=== PATIENT | female | born 1980 | race Hispanic/Latino ===

== ENCOUNTER 2018-04-20 15:38 | Outpatient (CLI) | payer BC | END 2018-04-20 15:39 | disposition home or self-care (01) | LOC: BICMAMMO 15:38 | PROVIDERS: ATTEND Family Medicine | DX: Z12.31 Encounter for screening mammogram for malignant neoplasm of breast (principal) | CPT/HCPCS: 77063; 77067 ==

== ENCOUNTER 2018-08-13 06:41 | Emergency (ER) | payer BC ==
[2018-08-13 07:10] LABS: #Basophils 0.1 thou/uL (0.0-0.2); #Eosinphils 0.2 thou/uL (0.0-0.7); #Lymphocytes 3.7 thou/uL (1.20-3.40); #Monocytes 0.5 thou/uL (0.11-0.59); #Neutrophils 6.6 thou/uL (1.40-6.50); %Eosinophils 1.8 % (0.0-10.0); %Lymphocytes 33.1 % (21.0-51.0); %Monocytes 4.6 % (0.0-10.0); %Neutrophils 59.5 % (42.0-75.0); Hemoglobin 13.6 g/dL (12.0-16.0); Mean Corpuscular HGB CONC 33.4 g/dL (32.0-36.0); Mean Corpuscular Hemoglobin 32.1 pg (27.0-31.0); Mean Corpuscular Volume 96.3 fL (78.0-98.0); Mean Platelet Volume 7.8 fL (7.4-10.4); Platelet Count 273 thou/uL (130-400); RBC Distribution Width 12.4 % (11.5-14.5); Red Blood Cell (RBC) Count 4.22 mill/uL (4.20-5.40); White Blood Cell (WBC) Count 11.1 thou/uL (4.8-10.8)
[2018-08-13 07:18] LABS: BHCG - Serum Negative (NEGATIVE); Pregs Control Background? CLEAR/WHITE (CLR/WHITE); Pregs Control Bar Appear? YES (CONTROL BAR)
[2018-08-13 07:24] LABS: ALT (SGPT) 107 U/L (8-55); AST (SGOT) 59 U/L (5-34); Albumin 4.3 g/dL (3.5-5.0); Alkaline Phosphatase 102 U/L (40-150); Anion Gap 16 mmol/L (10-20); BUN (Urea Nitrogen) 13 mg/dL (7.0-18.7); Bilirubin, Total 0.5 mg/dL (0.2-1.2); Calc. Creatinine Clearance 0 mL/min (70-130); Calcium 9.6 mg/dL (7.8-10.44); Carbon Dioxide 19 mmol/L (22-29); Chloride 106 mmol/L (98-107); Estimated GFR-MDRD Greater than 90; Glucose 124 mg/dL (70-105); Potassium 4.5 mmol/L (3.5-5.1); Protein, Total 7.3 g/dL (6.0-8.3); Sodium 136 mmol/L (136-145)
[2018-08-13] MEDS ORDERED: Ondansetron PF 4 MG/2 ML Vial ONE (07:42)
[2018-08-13] MEDS ORDERED: Morphine 4 MG/ML VIAL ONE ×2 (07:42→11:18)
[2018-08-13] MEDS ORDERED: cefOXitin 2 GM VIAL ONE (10:07)
[2018-08-13] MEDS ORDERED: Doxycycline 100 MG CAP PO SCH (10:15)
--- NOTE | 2018-08-13 10:33 | CT ---
CT ABDOMEN AND PELVIS WITH CONTRAST: Technique: Multiple contiguous axial images were obtained through the abdomen and pelvis with IV enha ncement. Indications: Abdominal pain. History: Prior miscarriages and prior ectopic . Patient denies vaginal bleeding according to the technologist. FINDINGS: Lung bases clear. Liver, spleen, and pancreas unremarkable. Adrenal glands and kidneys unremarkable. Urinary bladder un remarkable. Small bowel loops appear normal. Appendix appears unremarkable. Images through the lower abdomen and pelvis reveal a mass in the upper left pelvis. Overall dimension s recorded at approximately 5 cm AP and width. There is a central circumscribed cystic area measuring 2.6 cm. Surrounding inflammatory stranding. This appears adjacent to the left ovary. Endometrium is prominent. Small amount of free fluid in the cul-de-sac. IMPRESSION: 1. A mass in the upper left pelvis with a central cystic area. This does not have the appearance of a simple cyst. 2. There is surrounding inflammatory change. A small amount of free fluid. 3. Ectopic should be excluded. Tubo ovarian abscess is also a consideration. 4. Findings relayed to the Emergency Department at time of dictation. Code CR POS: [facility]
--- NOTE | 2018-08-13 14:47 | ULT ---
PELVIC ULTRASOUND: History: Pelvic pain. Technique: Multiple longitudinal and transverse images of the pelvis were obtained using a multi-hert z transabdominal as well as multihertz endovaginal transducers. FINDINGS: Real-time, color flow, and spectral waveform doppler analysis demonstrates the uterus to measure 9.3 x 4.8 x 6.6 cm. The endometrium has double wall thickness of 13 mm. Both ovaries are visualized. Righ t ovary measures 2.9 x 1.6 x 2.3 cm and left ovary 5.0 x 4.4 x 4.3 cm. Good blood flow is seen in bot h ovaries. There is a cyst in the left ovary measuring 2.2 x 2.9 x 2.5 cm. IMPRESSION: Left ovarian cyst and small amount of free pelvic fluid. No evidence of a significant pelvic abnormal ity seen. POS: [facility]
[2018-08-13] MEDS ORDERED: ISOVUE-370 76%-LOCM 1 ML ONE (16:51)
--- NOTE | 2018-08-14 10:54 | CON ---
DATE OF CONSULTATION: 08/13/2018 REFERRING PHYSICIAN: Dr. Jarett Bojorquez. CHIEF COMPLAINT: Abdominal pain and adnexal mass. HISTORY OF PRESENT ILLNESS: The patient is a 38-year-old female, who presented to the emergency room with 1-week history of abdominal pain of more severe abdominal pain and a several month history of intermittent pain. The patient woke up with severe pain in the time of presentation, unable to function and came to the emergency room for evaluation. Her initial thoughts were that she was miscarrying. However, on evaluation by the emergency room physician, the patient had a negative test and on CT scan, it was noted to have a left adnexal mass concerning for TOA by radiology findings. [employer] was consulted for evaluation. Upon arrival, the patient reports that she had been feeling much better compared to the pain she felt when she woke up. She did share with me that this pain has been going on for about a week now and it is more severe form and it has been going on for several months intermittently. The patient reports she has had painful intercourse in the left lower quadrant. The patient denies any change in discharge. She denies fever. She denies feeling ill. She denies nausea, vomiting, or diarrhea. The patient does report a couple of years ago, she had an ectopic resulting in removal of her right tube. PAST MEDICAL HISTORY: Diabetes and hyperlipidemia. The patient reports she has been told that she has inflammation of her liver. PAST SURGICAL HISTORY: Surgery for ectopic . SOCIAL HISTORY: Denies drug, alcohol, or tobacco use. ALLERGIES: NO KNOWN DRUG ALLERGIES. MEDICATIONS: 1. Lisinopril 5 mg daily. 2. Metformin 500 mg daily. PHYSICAL EXAMINATION: VITAL SIGNS: Blood pressure 111/56, pulse is 60, respiratory rate of 20, temperature 98.1, and saturating 96% on room air with reported pain scale of 5. GENERAL: She appears to be in no acute distress. She is alert, oriented, cooperative, and pleasant to interact with. HEENT: Head is normocephalic and atraumatic. LUNGS: Clear to auscultation bilaterally. HEART: Has regular rate and rhythm. ABDOMEN: Soft. She does have tenderness to palpation in the left lower quadrant. No peritoneal signs. EXTREMITIES: Nontender and nonedematous. DIAGNOSTIC DATA: Ultrasound was ordered. Findings were significant only for a 2 cm cyst on her left ovary, which otherwise appeared normal. In review of the images myself, the contents of the cyst appeared to be more heterogeneous than simple cystic fluid such as blood or a thicker mucinous fluid. Also noted on ultrasound is a small amount of pelvic fluid. ASSESSMENT AND PLAN: The patient is a 38-year-old female with chronic pelvic pain with an acute exacerbation. There is no evidence of infection at this time. She has suggested by Radiology findings, there is no inflammatory process surrounding this adnexa. Given the chronic nature of her symptoms and the spontaneous improvement over the course of her evaluation, though not resolved. The patient can continue this evaluation as an outpatient with [facility]. We did call make an appointment for her for Monday at 1030 hours in the morning, which she has agreed to keep. CA-125 was ordered at the time of initial ER evaluation, which findings are pending, but have a very low suspicion of any abnormality of CA-125 is back now with a level of 16.4, which is within normal limits. The patient will continue her evaluation as an outpatient with [facility] with Dr. Harris. Job ID: [id number]
== END 2018-08-13 13:41 | disposition home or self-care (01) ==
LOC: ERS 06:41
DX: N83.202 Unspecified ovarian cyst, left side (principal); E11.9 Type 2 diabetes mellitus without complications; E78.5 Hyperlipidemia, unspecified; Z79.84 Long term (current) use of oral hypoglycemic drugs; Z79.899 Other long term (current) drug therapy
CPT/HCPCS: 36415; 74177; 76856; 80053; 84702; 84703; 85025; 86304; 96365; 96366; 96375; 96376; J0694; J2270; J2405

== ENCOUNTER 2021-09-14 07:43 | Outpatient (CLI) | payer OTHER | END 2021-09-14 07:44 | disposition home or self-care (01) | LOC: BICULT 07:43 | PROVIDERS: ATTEND Nurse Practitioner Family | DX: R10.9 Unspecified abdominal pain (principal) | CPT/HCPCS: 76700 ==